=== PATIENT | female | born 1980 | race Hispanic/Latino ===

== ENCOUNTER 2016-11-13 12:24 | Emergency (ER) | payer OTHER ==
[2016-11-13] MEDS ORDERED: Ciprofloxacin 500 MG TAB ONE (12:33)
[2016-11-13] MEDS ORDERED: Adacel (T-DAP) 0.5 ML VIAL ONE (12:33)
[2016-11-13] MEDS ORDERED: Bacitracin Zinc 1 Packet ONE (12:38)
== END 2016-11-13 12:46 | disposition home or self-care (01) ==
LOC: BURERS 12:24
DX: S91.331A Puncture wound without foreign body, right foot, initial encounter (principal); E11.9 Type 2 diabetes mellitus without complications; Z79.4 Long term (current) use of insulin; W45.0XXA Nail entering through skin, initial encounter
CPT/HCPCS: 90471; 90715